=== PATIENT | male | born 2000 | race Caucasian/White ===

== ENCOUNTER 2021-01-20 16:27 | Emergency (ER) | payer OTHER ==
[~2021-01-20] VITALS: Ht 182.9 cm; Wt 78.7 kg
--- NOTE | 2021-01-20 17:12 | REP ---
INDICATION: pain over 1-3rd phalanges after falling ice, sip abrasions. COMPARISON: None. TECHNIQUE: Four views FINDINGS: Visualized metacarpals, phalanges, MCP and IP joints were all intact. No radiopaque foreign body, fracture, avulsion or erosion. No abnormal soft tissue swelling identified. The adjacent visualized bones and joints were also unremarkable. IMPRESSION: Negative right thumb and 2nd finger series. No visible avulsion, fracture, joint abnormality, foreign body or swelling. Adjacent visualized bones and joints also unremarkable. <Electronically signed by Pedro Luis Bustillos > 01/20/21 [id number]
[2021-01-20] MEDS ORDERED: DERMABOND TOPICAL SKIN ADHESIVE TOP ONE (17:35)
[2021-01-20 18:31] VITALS: BP 116/76
== END 2021-01-20 18:35 | disposition home or self-care (01) ==
LOC: EDSEX 16:27 → M ED 16:27
DX: S60.410A Abrasion of right index finger, initial encounter (principal); S60.412A Abrasion of right middle finger, initial encounter; W00.0XXA Fall on same level due to ice and snow, initial encounter; Y92.89 Other specified places as the place of occurrence of the external cause; Y99.0 Civilian activity done for income or pay